=== PATIENT | male | born 1990 | race Caucasian/White ===

== ENCOUNTER 2017-09-06 12:18 | Emergency (ER) | payer OTHER ==
--- NOTE | 2017-09-06 13:19 | EDM.PDOC ---
ED HPI GENERAL MEDICAL PROBLEM - General Chief Complaint: Headache Stated Complaint: HEADACHE ,FEVER Time Seen by Provider: 09/06/17 12:50 - History of Present Illness INITIAL COMMENTS - FREE TEXT/NARRATIVE: HISTORY AND PHYSICAL: History of present illness: The patient is a 27-year-old male with no pre-existing medical problems presents with complaints of 4-5 days of low-grade fevers dry cough frontal headache body aches malaise. Patient has not gotten his flu shot this year and has no local provider. The patient had some nausea and one episode of vomiting this morning but no diarrhea no stomach pain and he is tolerated fluids after that episode of vomiting. The cough is dry and nonproductive and he has been using Motrin, 400 mg, sporadically for the pain and fevers feelings. He has not really documented the temperature at home, only one time. The headaches he is experiencing is mostly on forehead and frontal area bilaterally and there is no specific focus Review of systems: As per history of present illness and below otherwise all systems reviewed and negative. Past medical history: As per history of present illness and as reviewed below otherwise noncontributory. Surgical history: As per history of present illness and as reviewed below otherwise noncontributory. Social history: No reported history of drug or alcohol abuse. Family history: As per history of present illness and as reviewed below otherwise noncontributory. Physical exam: Gen.: Well-developed well-nourished man who is nontoxic and moves easily in the ED and is in no apparent distress. Vital signs have been reviewed me. HEENT: Atraumatic, normocephalic, pupils reactive, negative for conjunctival pallor or scleral icterus, mucous membranes moist, throat clear, neck supple, nontender, trachea midline. Nasal turbinates are boggy bilaterally and there is no discrete sinus tenderness on palpation or scalp tenderness on palpation. There is no cervical adenopathy or nuchal rigidity Lungs: Clear to auscultation, breath sounds equal bilaterally, chest nontender. Heart: S1S2, regular rate and rhythm no overt murmurs Abdomen: Soft, nondistended, nontender. NABS Pelvis: Deferred Genitourinary: Deferred. Rectal: Deferred. Extremities: Atraumatic, negative for cords or calf pain. Neurovascular unremarkable. Neuro: Awake, alert, oriented. Cranial nerves II through XII unremarkable. Cerebellum unremarkable. Motor and sensory unremarkable throughout. Exam nonfocal. Diagnostics: None--- I discussed with the patient influenza testing possible labs and chest x -ray if he felt that his symptoms or his history worse more serious than the clinical findings that I am obtaining on my exam. I did offer him this testing but he would like to defer at this time and just treat what I am seeing in finding. Therapeutics: Impression: Viral syndrome/headaches/sinusitis Definitive disposition and diagnosis as appropriate pending reevaluation and review of above. Headache Pain Score (Numeric/FACES): 7 - Related Data Allergies Allergy/AdvReac Type Severity Reaction Status Date / Time No Known Allergies Allergy Verified 09/06/17 12:30 Home Meds: Home Meds . [No Known Home Meds] 09/06/17 [History] Past Medical History - Past Health History Medical/Surgical History: Denies Medical/Surgical History - Infectious Disease History Infectious Disease History: Reports: Chicken Pox Social & Family History - Family History Family Medical History: Noncontributory - Tobacco Use Smoking Status *Q: Light Tobacco Smoker Years of Tobacco use: 1 Packs/Tins Daily: 0.1 - Recreational Drug Use Recreational Drug Use: No ED ROS GENERAL - Review of Systems Review Of Systems: ROS reveals no pertinent complaints other than HPI. ED EXAM, GENERAL - Physical Exam Exam: See Below (See dictation) Course - Vital Signs Last Recorded V/S: Last Vital Signs Temp 35.9 C 09/06/17 12:28 Pulse 87 09/06/17 12:28 Resp 18 09/06/17 12:28 BP 135/73 09/06/17 12:28 Pulse Ox 98 09/06/17 12:28 Departure - Departure Time of Disposition: 13:16 Disposition: Home, Self-Care 01 Condition: Good Clinical Impression: Headache Qualifiers: Headache type: unspecified Headache chronicity pattern: acute headache Intractability: not intractable Qualified Code(s): R51 - Headache Sinusitis Qualifiers: Sinusitis location: unspecified location Chronicity: acute Recurrence: not specified as recurrent Qualified Code(s): J01.90 - Acute sinusitis, unspecified - Discharge Information Referrals: PCP,None [Primary Care Provider] - Additional Instructions: The following information is given to patients seen in the emergency department who are being discharged to home. This information is to outline your options for follow-up care. We provide all patients seen in our emergency department with a follow-up referral. The need for follow-up, as well as the timing and circumstances, are variable depending upon the specifics of your emergency department visit. If you don't have a primary care physician on staff, we will provide you with a referral. We always advise you to contact your personal physician following an emergency department visit to inform them of the circumstance of the visit and for follow-up with them and/or the need for any referrals to a consulting specialist. The emergency department will also refer you to a specialist when appropriate. This referral assures that you have the opportunity for followup care with a specialist. All of these measure are taken in an effort to provide you with optimal care, which includes your followup. Under all circumstances we always encourage you to contact your private physician who remains a resource for coordinating your care. When calling for followup care, please make the office aware that this follow-up is from your recent emergency room visit. If for any reason you are refused follow-up, please contact the [facility] emergency department at and ask to speak to the emergency department charge nurse. [facility] Primary care- Internal [place] [address] Please take [id number] Claritin or Leatha to help dry out sinuses as needed and use [id number] Tylenol and Motrin for pain and fevers. Your dose for Motrin would be 600-800 mg every 6-8 hours and Tylenol would be 1 g every 6 hours. Push hydration such as water Gatorade and juices as we discussed. Please call and follow-up in our clinic in the next several days for reevaluation of his care plan and further testing or intervention as needed. Return to ER as needed and as discussed. Take antibiotics until they're finished.
== END 2017-09-06 13:31 | disposition home or self-care (01) ==
LOC: MW.ED 12:18
DX: J01.90 Acute sinusitis, unspecified (principal); F17.210 Nicotine dependence, cigarettes, uncomplicated
CPT/HCPCS: 99282; 99283